=== PATIENT | male | born 1980 | race Caucasian/White ===

== ENCOUNTER 2017-05-14 05:30 | Inpatient (IN) | payer MEDICAID, OTHER ==
[~2017-05-14] VITALS: Ht 170.2 cm; Wt 86.4 kg
[~2017-05-14 05:30] MED LIST: METF500T4 PO
[2017-05-14] MEDS ORDERED: GLIP5TAB11 PO (05:39)
[2017-05-14 05:47] LABS: GLUCOSE,POINT OF CARE 326 MG/DL (70-110)
[2017-05-14 06:02] LABS: APPEARANCE,URINE CLEAR (CLEAR); GLUCOSE, URINE (UA) >=1000 mg/dL (NEGATIVE); KETONES,URINE >=80 mg/dL (NEGATIVE); LEUKOCYTE ESTERASE ,URINE NEGATIVE (NEGATIVE); OCCULT BLOOD,URINE NEGATIVE (NEGATIVE); PH,URINE 5.5 (5.0-8.0); PROTEIN,URINE NEGATIVE (NEGATIVE)
[2017-05-14 06:05] LABS: ADD UA MICROSCOPIC YES
[2017-05-14 06:11] LABS: HEMATOCRIT 49.8 % (41-53); MEAN CORPUSCULAR VOLUME 90 fL (80-100); PLATELET COUNT (AUTO) 180 K/uL (150-450); RED BLOOD CELL COUNT(AUTO) 5.52 MIL/uL (4.50-5.90); RED CELL DISTRIBUTION WIDTH 12.6 % (11.5-14.5); WHITE BLOOD COUNT (AUTO) 13.5 K/uL (4.5-11.0)
[2017-05-14 06:21] LABS: RBC,URINE None Seen /HPF (0-2); SQUAMOUS EPITHELIAL CELL,UR Rare /LPF (None Seen); WBC,URINE None Seen /HPF (0-5)
[2017-05-14] MEDS ORDERED: MORPHINE SULFATE 4 MG/ML SYRINGE IVP ONE (06:30)
[2017-05-14] MEDS ORDERED: PANTOPRAZOLE SODIUM 40 MG/VIAL IVP ONE (06:30)
[2017-05-14] MEDS ORDERED: SODIUM CHLORIDE 0.9% 1,000 ML IV ONE ×3 (06:30→08:30)
[2017-05-14 06:43] LABS: MEAN CORPUSCULAR HEMOGLOBIN 30.5 pg (26.0-34.0); MEAN CORPUSCULAR HGB CONC 33.8 G/dL (31.0-37.0)
[2017-05-14 06:44] LABS: HEMOGLOBIN 16.9 g/dL (13.5-17.5)
[2017-05-14 06:56] LABS: BAND NEUTROPHILS % (MANUAL) 16 % (1-5); LYMPHOCYTES % (MANUAL) 12 % (22-44); TOTAL CELLS COUNTED 100
[2017-05-14 06:58] LABS: RBC MORPHOLOGY COMMENT ABNORMAL RBC MORPH
[2017-05-14 07:02] LABS: ANION GAP 23 mmol/L (8-16); BILIRUBIN,TOTAL 1.7 mg/dL (0.1-1.0); CALCIUM, TOTAL 6.9 mg/dL (8.8-10.5); CARBON DIOXIDE 11 mmol/L (22-29); CHLORIDE 91 mmol/L (98-107); POTASSIUM 4.7 mmol/L (3.5-5.1); SODIUM SERUM 125 mmol/L (136-145)
[2017-05-14 07:59] LABS: CREATININE 0.71 mg/dL (0.60-1.30); GLOMERULAR FILTR. RATE CALC > 60 mL/min (>60)
[2017-05-14 08:00] LABS: ALANINE AMINOTRANSFERASE 86 U/L (12-78); ASPARTATE AMINOTRANSFERASE 56 U/L (15-37)
[2017-05-14 08:01] LABS: ALBUMIN 4.3 g/dL (3.4-5.0); TOTAL PROTEIN, SERUM 6.8 g/dL (6.4-8.2)
[2017-05-14 08:02] LABS: UREA NITROGEN, BLOOD 11 mg/dL (7-18)
[2017-05-14] MEDS ORDERED: INSULIN REGULAR, HUMAN 100 UNITS/ML SQ ONE (08:30)
[2017-05-14] MEDS ORDERED: ONDANSETRON HCL 4 MG/2 ML VIAL IVP ONE (08:30)
[2017-05-14 08:42] LABS: GLUCOSE,POINT OF CARE 266 MG/DL (70-110)
[2017-05-14 08:48] LABS: ABG A-A DIFF O2 109.7 mmHg (10-20.0)
[2017-05-14 09:21] LABS: ABG BASE EXCESS -7.8 mmol/L (-2.0-3.0); ABG HCO3 19.2 mmol/L (22.0-26.0); ABG OXYHEMOGLOBIN 97.7 % (94.0-100.0); ABG PCO2 33 mmHg (35-45); ABG PH 7.352 (7.350-7.450); ALLEN TEST, BLOOD GAS Positive; TEMPERATURE, FAHRENHEIT, BG 98.4 FAHREN (96.0-98.6)
[2017-05-14] MEDS ORDERED: DEXTROSE 50%-WATER 25 GM/50 ML SYRINGE IVP PRN (10:00)
[2017-05-14] MEDS ORDERED: POTASSIUM CHL 10 MEQ/WATER 50 ML IV PRN (10:00)
[2017-05-14] MEDS ORDERED: ONDANSETRON HCL 4 MG/2 ML VIAL IVP PRN (10:00)
[2017-05-14] MEDS ORDERED: MAGNESIUM SULFATE 2 GM in DEXTROSE 5%-WATER 50 ML IV PRN (10:00)
[2017-05-14] MEDS ORDERED: POTASSIUM CHLORIDE 20 MEQ ER TABLET PO PRN (10:00)
[2017-05-14] MEDS ORDERED: MAGNESIUM SULFATE 4 GM/WATER 100 ML IV PRN (10:00)
[2017-05-14] MEDS ORDERED: MAGNESIUM OXIDE 400 MG TABLET PO PRN (10:00)
[2017-05-14 10:16] VITALS: BP 169/106
[2017-05-14] MEDS: MORPHINE SULFATE 2 MG/ML SYRINGE IVP PRN ×4 (10:22→20:07)
[2017-05-14] MEDS: SODIUM CHLORIDE 0.9% 1,000 ML IV SCH ×2 (10:22→20:07)
[2017-05-14] MEDS: PANTOPRAZOLE SODIUM 40 MG/VIAL IVP SCH (10:22)
[2017-05-14] MEDS ORDERED: PNEUMOCOCCAL VACCINE POLYVALENT 0.5 ML VIAL [PPSV23] IM ONE (11:30)
[2017-05-14] MEDS ORDERED: INFLUENZA VIRUS VACCINE QVS 2017-18 (3YR+)/PF 60 MCG/0.5 ML SYRINGE IM ONE (11:30)
[2017-05-14 11:38] LABS: GLUCOSE,POINT OF CARE 251 MG/DL (70-110)
[2017-05-14 11:51] VITALS: BP 164/107
[2017-05-14] MEDS: ACETAMINOPHEN 325 MG TABLET PO PRN (12:12)
[2017-05-14] MEDS ORDERED: CloNIDine HCL 0.1 MG TABLET PO PRN (12:15)
[2017-05-14 13:41] VITALS: BP 165/111
[2017-05-14] MEDS ORDERED: CloNIDine HCL 0.1 MG TABLET PO ONE (14:15)
[2017-05-14 14:59] VITALS: BP 168/98
[2017-05-14 16:11] VITALS: BP 177/105
[2017-05-14] MEDS: AmLODIPine BESYLATE 10 MG TABLET PO SCH (16:19)
[2017-05-14 18:18] LABS: GLUCOSE,POINT OF CARE 219 MG/DL (70-110)
[2017-05-14] MEDS: DOCUSATE SODIUM 100 MG CAPSULE PO SCH (20:06)
[2017-05-14 20:33] VITALS: BP 156/94
[2017-05-14 21:43] LABS: GLUCOSE,POINT OF CARE 185 MG/DL (70-110)
[2017-05-15] VITALS (7 sets, daily range): BP systolic 137–154; BP diastolic 88–96
[2017-05-15] MEDS: ACETAMINOPHEN 325 MG TABLET PO PRN (00:36)
[2017-05-15] MEDS: SODIUM CHLORIDE 0.9% 1,000 ML IV SCH ×2 (05:38→17:31)
[2017-05-15] MEDS: MORPHINE SULFATE 2 MG/ML SYRINGE IVP PRN ×2 (05:42→20:10)
[2017-05-15 06:35] LABS: HEMATOCRIT 47.9 % (41-53); HEMOGLOBIN 16.8 g/dL (13.5-17.5); MEAN CORPUSCULAR HEMOGLOBIN 31.9 pg (26.0-34.0); MEAN CORPUSCULAR VOLUME 91 fL (80-100); RED BLOOD CELL COUNT(AUTO) 5.26 MIL/uL (4.50-5.90); RED CELL DISTRIBUTION WIDTH 12.3 % (11.5-14.5); WHITE BLOOD COUNT (AUTO) 13.8 K/uL (4.5-11.0)
[2017-05-15 06:57] LABS: ALBUMIN 3.3 g/dL (3.4-5.0); ANION GAP 14 mmol/L (8-16); BILIRUBIN,TOTAL 1.5 mg/dL (0.1-1.0); CARBON DIOXIDE 19 mmol/L (22-29); CHLORIDE 98 mmol/L (98-107); CREATININE 0.73 mg/dL (0.60-1.30); GLOMERULAR FILTR. RATE CALC > 60 mL/min (>60); SODIUM SERUM 131 mmol/L (136-145); TOTAL PROTEIN, SERUM 6.7 g/dL (6.4-8.2); UREA NITROGEN, BLOOD 7 mg/dL (7-18)
[2017-05-15 07:36] LABS: ALANINE AMINOTRANSFERASE 53 U/L (12-78); ASPARTATE AMINOTRANSFERASE 28 U/L (15-37)
[2017-05-15 08:38] LABS: PLATELET COUNT (AUTO) 111 K/uL (150-450)
[2017-05-15 08:46] LABS: BAND NEUTROPHILS % (MANUAL) 4 % (1-5); BASOPHILS % (MANUAL) 1 % (0-2); EOSINOPHILS % (MANUAL) 1 % (1-6); LYMPHOCYTES % (MANUAL) 10 % (22-44); TOTAL CELLS COUNTED 100
[2017-05-15] MEDS: AmLODIPine BESYLATE 10 MG TABLET PO SCH (09:21)
[2017-05-15] MEDS: PANTOPRAZOLE SODIUM 40 MG/VIAL IVP SCH (09:21)
[2017-05-15] MEDS: DOCUSATE SODIUM 100 MG CAPSULE PO SCH ×2 (09:21→20:09)
[2017-05-15 11:28] LABS: GLUCOSE,POINT OF CARE 175 MG/DL (70-110)
[2017-05-15 19:57] LABS: GLUCOSE COMMENT 1 Received Meds; GLUCOSE,POINT OF CARE 227 MG/DL (70-110)
[2017-05-15 19:57] LABS: GLUCOSE,POINT OF CARE 193 MG/DL (70-110)
[2017-05-15] MEDS: MAGNESIUM HYDROXIDE SUSPENSION 30 ML UDCUP PO PRN (20:09)
[2017-05-15] MEDS: INSULIN ASPART 100 UNITS/ML SQ PRN (21:16)
[2017-05-15 21:32] LABS: GLUCOSE COMMENT 1 Received Meds; GLUCOSE,POINT OF CARE 196 MG/DL (70-110)
[2017-05-16] MEDS: SODIUM CHLORIDE 0.9% 1,000 ML IV SCH ×3 (02:28→21:04)
[2017-05-16] MEDS: MAGNESIUM HYDROXIDE SUSPENSION 30 ML UDCUP PO PRN (03:39)
[2017-05-16 04:00] VITALS: BP 142/92
[2017-05-16] MEDS: INSULIN ASPART 100 UNITS/ML SQ PRN ×3 (06:01→21:03)
[2017-05-16 07:24] VITALS: BP 145/95
[2017-05-16] MEDS: PANTOPRAZOLE SODIUM 40 MG/VIAL IVP SCH (08:12)
[2017-05-16] MEDS: DOCUSATE SODIUM 100 MG CAPSULE PO SCH ×2 (08:12→19:47)
[2017-05-16] MEDS: AmLODIPine BESYLATE 10 MG TABLET PO SCH (08:12)
[2017-05-16 11:52] VITALS: BP 138/94
[2017-05-16 16:09] VITALS: BP 140/92
[2017-05-16] MEDS: ACETAMINOPHEN 325 MG TABLET PO PRN ×2 (16:50→21:04)
[2017-05-16 19:53] VITALS: BP 134/87
[2017-05-16 23:19] VITALS: BP 132/83
[2017-05-17] MEDS: MAGNESIUM HYDROXIDE SUSPENSION 30 ML UDCUP PO PRN (04:07)
[2017-05-17 04:27] VITALS: BP 136/90
[2017-05-17] MEDS: SODIUM CHLORIDE 0.9% 1,000 ML IV SCH (05:23)
[2017-05-17] MEDS: INSULIN ASPART 100 UNITS/ML SQ PRN ×2 (05:24→11:26)
[2017-05-17 06:52] LABS: BASOPHILS # (AUTO) 0.03 K/uL (0.00-0.20); BASOPHILS % (AUTO) 0.2 % (0.0-2.0); EOSINOPHILS # (AUTO) 0.07 K/uL (0.00-0.70); EOSINOPHILS % (AUTO) 0.51 % (1.0-6.0); HEMATOCRIT 43.9 % (41-53); HEMOGLOBIN 14.5 g/dL (13.5-17.5); LYMPHOCYTES # (AUTO) 1.3 K/uL (1.0-4.8); LYMPHOCYTES % (AUTO) 9.7 % (22.0-44.0); MEAN CORPUSCULAR HEMOGLOBIN 31.1 pg (26.0-34.0); MEAN CORPUSCULAR VOLUME 94 fL (80-100); MONOCYTES % (AUTO) 7.7 % (2.0-9.0); NEUTROPHILS # (AUTO) 10.6 K/uL (1.8-7.7); NEUTROPHILS % (AUTO) 81.9 % (40.0-70.0); PLATELET COUNT (AUTO) 133 K/uL (150-450); RED BLOOD CELL COUNT(AUTO) 4.65 MIL/uL (4.50-5.90); RED CELL DISTRIBUTION WIDTH 13.1 % (11.5-14.5)
[2017-05-17 06:58] LABS: ANION GAP 11 mmol/L (8-16); CALCIUM, TOTAL 8.3 mg/dL (8.8-10.5); CARBON DIOXIDE 25 mmol/L (22-29); CHLORIDE 99 mmol/L (98-107); CREATININE 0.79 mg/dL (0.60-1.30); GLOMERULAR FILTR. RATE CALC > 60 mL/min (>60); POTASSIUM 3.2 mmol/L (3.5-5.1); SODIUM SERUM 135 mmol/L (136-145); UREA NITROGEN, BLOOD 9 mg/dL (7-18)
[2017-05-17 07:45] VITALS: BP 142/80
[2017-05-17] MEDS: DOCUSATE SODIUM 100 MG CAPSULE PO SCH (08:29)
[2017-05-17] MEDS: PANTOPRAZOLE SODIUM 40 MG/VIAL IVP SCH (08:29)
[2017-05-17] MEDS: AmLODIPine BESYLATE 10 MG TABLET PO SCH (08:29)
[2017-05-17 11:45] VITALS: BP 147/82
[2017-05-17] MEDS ORDERED: AZIT500T4 PO (13:27)
[2017-05-17] MEDS ORDERED: POTASSIUM CHLORIDE 20 MEQ ER TABLET PO ONE (13:30)
[2017-05-17 15:32] LABS: GLUCOSE COMMENT 1 Received Meds; GLUCOSE,POINT OF CARE 184 MG/DL (70-110)
[2017-05-19 06:43] LABS: GLUCOSE COMMENT 1 Received Meds; GLUCOSE,POINT OF CARE 221 MG/DL (70-110)
[2017-05-19 06:43] LABS: GLUCOSE COMMENT 1 Received Meds; GLUCOSE,POINT OF CARE 180 MG/DL (70-110)
[2017-05-19 06:43] LABS: GLUCOSE COMMENT 1 Received Meds; GLUCOSE,POINT OF CARE 191 MG/DL (70-110)
[2017-05-19 06:44] LABS: GLUCOSE COMMENT 1 Received Meds; GLUCOSE,POINT OF CARE 193 MG/DL (70-110)
[2017-05-19 06:48] LABS: GLUCOSE COMMENT 1 Received Meds; GLUCOSE,POINT OF CARE 194 MG/DL (70-110)
== END 2017-05-17 15:00 | disposition home or self-care (01) | DRG 438 ==
LOC: EMS 05:30 → 6N 08:54
PROVIDERS: ADMIT Internal Medicine; ATTEND Internal Medicine
PROC: 3E0234Z Introduction of Serum, Toxoid and Vaccine into Muscle, Percutaneous Approach (ICD-10-PCS; principal; 2017-05-14)
DX: K85.90 Acute pancreatitis without necrosis or infection, unspecified (principal); J18.9 Pneumonia, unspecified organism; E11.65 Type 2 diabetes mellitus with hyperglycemia; F10.10 Alcohol abuse, uncomplicated; I10 Essential (primary) hypertension; J40 Bronchitis, not specified as acute or chronic; Z91.19 Patient's noncompliance with other medical treatment and regimen; Z79.84 Long term (current) use of oral hypoglycemic drugs; Z79.899 Other long term (current) drug therapy; Z23 Encounter for immunization
CPT/HCPCS: 80307; 82805; 82962; 83735; 90471; 96374; 96375; 99285; C9113; J1815; J2270; J2405; J7030

== ENCOUNTER 2022-06-26 13:29 | Emergency (ER) | payer OTHER ==
[~2022-06-26] VITALS: Ht 167.6 cm; Wt 72.7 kg
[~2022-06-26 13:29] MED LIST changes: +AZIT500T4 PO; +GLIP5TAB11 PO; +METF-1211 PO; -METF500T4 PO
[2022-06-26] MEDS ORDERED: GEMF-77 PO (13:36)
[2022-06-26] MEDS ORDERED: LISI-893 PO (13:37)
[2022-06-26] MEDS ORDERED: ERTU15TA PO (13:37)
[2022-06-26 14:22] VITALS: BP 149/90
[2022-06-26] MEDS ORDERED: LIDOCAINE 1% 10 ML VIAL PERC ONE (16:00)
[2022-06-26] MEDS ORDERED: GLIP10TA10 PO (16:01)
[2022-06-26] MEDS ORDERED: CLOB15CR41 TP (16:01)
[2022-06-26] MEDS ORDERED: CEPH-558 PO (16:33)
[2022-06-26] MEDS ORDERED: IBUP-2070 PO (16:34)
[2022-06-26] MEDS ORDERED: BACI28OI29 TP (16:35)
[2022-06-26] MEDS ORDERED: NEOMYCIN/BACITRACIN/POLYMYXIN B OINTMENT PACKET TP ONE (16:45)
== END 2022-06-26 17:20 | disposition home or self-care (01) ==
LOC: EMS 13:33
DX: S61.011A Laceration without foreign body of right thumb without damage to nail, initial encounter (principal); F32.A Depression, unspecified; E11.9 Type 2 diabetes mellitus without complications; I10 Essential (primary) hypertension; F10.90 Alcohol use, unspecified, uncomplicated; W26.8XXA Contact with other sharp object(s), not elsewhere classified, initial encounter; Y93.89 Activity, other specified; Y92.89 Other specified places as the place of occurrence of the external cause; Y99.8 Other external cause status
CPT/HCPCS: 99283; 12001; J3490